=== PATIENT | male | born 1960 | race Caucasian/White ===

== ENCOUNTER → 2017-05-24 | Outpatient (CLI) | payer MEDICAID | LOC: CIMAGING 14:19 | PROVIDERS: ATTEND Internal Medicine | DX: R06.02 Shortness of breath (principal); I25.2 Old myocardial infarction; Z87.891 Personal history of nicotine dependence | CPT/HCPCS: 71250-PO ==

== ENCOUNTER → 2017-07-13 | Outpatient (CLI) | payer MEDICAID | LOC: SBRMNEURO 21:00 | PROVIDERS: ATTEND Internal Medicine Pulmonary Disease | DX: G47.33 Obstructive sleep apnea (adult) (pediatric) (principal); G47.61 Periodic limb movement disorder ==

== ENCOUNTER → 2017-08-08 | Outpatient (CLI) | payer MEDICAID | LOC: CIMAGING 15:27 | PROVIDERS: ATTEND Internal Medicine Pulmonary Disease | DX: R06.00 Dyspnea, unspecified (principal) | CPT/HCPCS: 71020-PO ==

== ENCOUNTER → 2018-02-13 | Outpatient (CLI) | payer MEDICAID | LOC: FIMAGING 17:24 | PROVIDERS: ATTEND Internal Medicine | DX: N20.2 Calculus of kidney with calculus of ureter (principal); N13.30 Unspecified hydronephrosis ==

== ENCOUNTER → 2018-07-28 | Outpatient (CLI) | payer MEDICAID | LOC: FIMAGING 09:32 | PROVIDERS: ATTEND Internal Medicine | DX: K21.0 Gastro-esophageal reflux disease with esophagitis (principal); K44.9 Diaphragmatic hernia without obstruction or gangrene ==